=== PATIENT | male | born 1975 | race African-American/Black ===

== ENCOUNTER 2017-06-26 14:02 | Emergency (ER) | payer OTHER ==
[~2017-06-26] VITALS: Ht 185.4 cm; Wt 93.4 kg
--- NOTE | ~2017-06-26 | EKG ---
[facility] [place] [address] ELECTROCARDIOGRAM REPORT Name: ALEKSANDRA WILLIS [facility] Room #: [facility] Ankit#: [id number] Admission: 06/26/17 Attend Phys: Discharge: 06/26/17 Date of : 77 Report #: [id number] THIS REPORT FOR: //name// [facility] ED Test Date: 2017-06-26 Test Time: 14:15:34 Pat Name: ALEKSANDRA WILLIS Department: Room: Gender: Supply Chain Buyer: [facility] : [id number] Requested By: Sena Núñez Order Number: [id number] MD: Juliocesar Mathew Measurements Intervals [place] Rate: 98 P: 66 PA: 128 QRS: 42 QRSD: 104 T: -65 QT: 362 QTc: 463 Interpretive Statements Sinus rhythm Possible Inferior infarct, age indeterminate Nonspecific T wave abnormality No previous ECGs available for comparison Electronically Signed On 06-27-2017 15:48:55 PRODUCT DEVELOPMENT MANAGER by Juliocesar Mathew [email or web address] <ELECTRONICALLY SIGNED> By: Juliocesar Mathew MD, [facility] 06/27/17 1548 1415 1415 Juliocesar Mathew MD, FACC /EPI
[~2017-06-26 14:02] MED LIST: APAP/CODEINE ELI5 M1 OR; COUMADIN 5 MG TA5 M1 PO; ENOXAPARIN100 MG/11 SUBQ; IBUPROFEN 200200 M1 PO; KEFLEX500 MG PO; NAPROSYN500 MG PO; NICOTINE TRANSD21 M1 TRANSDERM; NORCO 5-325 TA1 EACH PO; PERCOCET PO; ZPAK PO
[2017-06-26 14:52] LABS: ABSOLUTE NEUTROPHILS 4.7 thou/uL (1.4-8.2); BASOPHILS 0.9 % (0.0-2.0); EOSINOPHILS 2.8 % (0.0-3.0); HEMATOCRIT 40.8 % (42.0-52.0); HEMOGLOBIN 13.9 gm/dL (14.0-18.0); LYMPHOCYTES 31.2 % (24.0-44.0); MCH 30.7 pg (26.0-34.0); MCHC 34.1 g/dL (28.0-37.0); MONOCYTES 4.9 % (1.0-8.0); PLATELET COUNT 311 thou/uL (150-400); POLYS 60.2 % (36.0-66.0); RBC 4.54 mil/uL (4.50-6.00); RDW 12.9 % (10.5-14.5); WBC 7.9 thou/uL (4.0-11.0)
[2017-06-26 15:00] LABS: ANION GAP 8 mmol/L (7-16); BUN 7 mg/dL (7-18); CALCIUM 8.5 mg/dL (8.5-10.1); CHLORIDE 101 mmol/L (98-107); CO2 25 mmol/L (21-32); CREATININE 0.9 mg/dL (0.7-1.3); GLUCOSE 124 mg/dL (74-106); POTASSIUM 3.6 mmol/L (3.5-5.1); SODIUM 134 mmol/L (136-145)
[2017-06-26 15:06] LABS: APTT 24.7 Seconds (24.5-32.8); PROTIME 9.7 Seconds (9.3-11.4)
[2017-06-26 15:09] LABS: TROPONIN-I < 0.04 ng/mL (<0.06)
[2017-06-26 17:13] VITALS: BP 138/90
== END 2017-06-26 17:23 | disposition home or self-care (01) ==
LOC: ER 14:02
PROVIDERS: Emergency Medicine
DX: J06.9 Acute upper respiratory infection, unspecified (principal); R00.2 Palpitations; J45.909 Unspecified asthma, uncomplicated; F17.210 Nicotine dependence, cigarettes, uncomplicated; Z87.01 Personal history of pneumonia (recurrent); Z88.0 Allergy status to penicillin; Z91.041 Radiographic dye allergy status